=== PATIENT | female | born 1930 | race African-American/Black ===

== ENCOUNTER 2018-07-21 13:24 | Inpatient (IN) | payer OTHER ==
[~2018-07-21] VITALS: Ht 149.9 cm; Wt 42.2 kg
--- NOTE | ~2018-07-21 | EKG ---
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
--- NOTE | ~2018-07-21 | O ---
[address] [address] OPERATIVE REPORT Name: MARYAM FRENCH Room #: 426-P ADM IN M.R.#: [id number] Admission: 07/21/18 Attend Phys: Wojciech Abreu MD Discharge: Date of : 31 Report #: [id number] THIS REPORT FOR: //name// CC: Wojciech Walker DATE OF SERVICE: 07/21/2018 SERVICE: Orthopedics. FACILITY: [facility]. SURGEON: Javan Pimentel MD SUPERVISOR INSPECTING: Audrey Rae NP PREOPERATIVE DIAGNOSES: 1. Type 1 open left both bone forearm fracture. 2. 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 3. Osteoporosis. 4. End-stage renal disease, on hemodialysis, status post previous dialysis access fistula, left upper extremity. POSTOPERATIVE DIAGNOSES: 1. Type 1 open left both bone forearm fracture. 2. 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 3. Osteoporosis. 4. End-stage renal disease, on hemodialysis, status post previous dialysis access fistula, left upper extremity. PROCEDURES: 1. Irrigation and debridement down to bone, left open both bone forearm fracture. 2. Open reduction and internal fixation of left both bone forearm fracture. COMPLICATIONS: None. SPECIMENS: None. ESTIMATED BLOOD LOSS: 75 mL. ANESTHESIA: Regional nerve block with MAC FINDINGS: 1. Severely malunited distal radius fracture from prior trauma, which precluded adequate selection of industry-manufactured traditional distal radius plates or [address] [place] [address] OPERATIVE REPORT Name: MARYAM FRENCH Room #: 426-P [facility] IN M.R.#: [id number] Admission: 07/21/18 Attend Phys: Wojciceh Abreu MD Discharge: Date of : 31 Report #: [id number] long bone plates, therefore had to custom modify a plate for her particular radius deformity. In addition, previous distal radius malunion complicated the exposure due to scarring and shortening of the radial length relative to the ulna. 2. Arteriovenous fistula precluded utilization of a tourniquet during the procedure and resulted in hypertrophy of the radial artery, which was protected throughout the procedure. 3. Synthes 5-hole dynamic LCP plate on the ulna in compression technique. 4. Acumed distal radius plate with Synthes interfragmentary compression screw. HISTORY: The patient is an 87-year-old female with end-stage renal disease, on hemodialysis, who had fallen previously, sustained a left severely displaced distal radius fracture. She has elected for nonsurgical treatment and this resulted in a malunion. She took a fall at congregational today and this resulted in open distal both-bone forearm fracture that was severely displaced. The proximal ulna penetrated the ulnar skin causing the open fracture. She was brought to [facility] Emergency Room where she was treated initially and orthopedics was consulted. Internal medicine service assessed her, felt that she was in optimal condition for surgery and I had a discussion with her and her family members about our treatment recommendations. She was indicated for surgical I and D with open reduction and internal fixation for her best outcome. Risks, benefits, alternatives, and indication of surgery discussed with her in detail. Risks include, but not limited to pain, bleeding, infection, injury to nerves or blood vessels, malunion, nonunion, stiffness, need for further surgery including revision, as well as complications related to anesthesia such as stroke, heart attack, pulmonary complications, thromboembolic disease and . Despite these risks, they wished to proceed. PROCEDURE IN DETAIL: After the left upper extremity was correctly identified in the preop holding area as operative extremity, the patient had placement of a single shot regional nerve block by the anesthesia provider. She was then taken to the operating room and monitored anesthetic care was induced without complication. She was padded appropriately. Prophylactic antibiotics were administered in the emergency room upon presentation with an open fracture and they were redosed at the appropriate time during surgery. The left upper extremity could not have a tourniquet applied. The left arm was then prepped and draped in standard sterile fashion. Time-out procedure was performed. The ulnar open incision was evaluated first. It was a transverse incision measuring just over a centimeter in length. This was extended distally and proximally in a Z shape fashion and contused torn skin in the transverse central portion was excised sharply. Dissection was taken down to the bone. The muscle was incised and was reflected allowing access to the ulna. The position of the traumatic tear and the skin was actually more volar, which developed a pathway to the volar aspect of the ulnar shaft, thereby making internal fixation on the volar side most amenable and appropriate. The bone ends were delivered out of [address] [address] OPERATIVE REPORT Name: MARYAM FRENCH Room #: 426-P [facility] IN M.R.#: [id number] Admission: 07/21/18 Attend Phys: Wojciech Abreu MD Discharge: Date of : 31 Report #: [id number] the wound. They were thoroughly curettaged and irrigated. There were some loose cortical fragments that were free of any soft tissue attachments and had to be excised. There was primarily a transverse fracture here and with the deficient dorsal cortex, internal fixation was challenging because there were no cortical keys to hold provisional reduction in addition with deficient dorsal cortex. K-wire was unable to be utilized for provisional fixation. So therefore, I elected to secure the plate to the bone proximally, assessed its position under fluoroscopy and then reduced the distal fragment to the plate and shaft with the compression plating technique. This provided good secure fixation. The position of the fracture allowed for only a 5-hole plate with 2 holes distal to the fracture, but it did appear to be holding securely. The plate was well centered on the bone. X-rays were taken to assess the ulnar alignment and fixation. The radius was then addressed. The volar approach to the radius was made through the flexor carpi radialis tendon sheath, which was incised and tendon was retracted, as well as the flexor pollicis longus muscle belly and the pronator quadratus. There was scarring of the pronator muscle and some of it had fibrosed from the previous trauma. The soft tissues were adhesed to the malunion and visualization of the natural dissection of an approach plane was rather significantly altered. The radial shaft was visualized proximally and I spent quite some time. She is in the optimal internal fixation construct. The fracture line was quite oblique and was amenable to lag screw fixation, but the dorsal spike was somewhat thin and required a significantly angled lag screw technique, which precluded complete countersinking of the screw head because that would have seeded portion of the head below the cortical layer. Therefore, I partially countersunk the interfragmentary compression screw. After the fracture was clamped, it was drilled. The countersink was utilized AND the interfragmentary compression screw was placed and this provided excellent purchase and strong stable fixation with a single screw. X-rays were taken to confirm the shaft was anatomically reduced. The malunion could be visualized and then I assessed various plate options. The available plate options were compromised either due to the prominence of the interfrag screw or primarily due to the deformity of the distal radius, both on the sagittal plane and the coronal plane. In addition, there was some rotational deformity as well. The malunion precluded use of a traditional distal radius plate, but most this bone was cancellous and so I could not utilize a traditional both bone forearm type shaft plate such as LCP. I ultimately selected the Acumed head locking distal radius plate without extended shaft, but the volar angle for traditional non-malunited distal radius anatomy was too flexed, therefore used the plate bending devices to recontour the plate in an effort to refashion it to a flatter surface, which essentially made it equivalent to an internal and external fixator when placed with locking screws. The plate was then placed under fluoroscopic visualization on multiple planes and then was fixed to the shaft proximally with locking screws and then the plate was fixed distally where purchase was at times compromised due to the significant osteoporosis that was [facility] [address] [place] [address] OPERATIVE REPORT Name: MARYAM FRENCH Room #: 426-P [facility] IN M.R.#: [id number] Admission: 07/21/18 Attend Phys: Wojciech Abreu MD Discharge: Date of : 31 Report #: [id number] present. I was able to place two locking screws and 2 nonlocking screws within the distal segment and also utilized a single compression screw to draw the plate down to the bone volarly and this was later discarded. The wound was copiously irrigated after final x-rays were taken. The fractures were both found to be stable. Hemostasis was achieved once more throughout the procedure. Both wounds were then once again thoroughly irrigated and the skin incisions were closed with 2-0 PDS followed by 3-0 nylon. Sterile dressings applied followed by short arm splint on 3 sides. She is not able to tolerate a sugar-tong or long arm splint because of her fistula. There were no complications. All counts reported correct. <ELECTRONICALLY SIGNED> By: Javan Pimentel MD 07/24/18 0952 [id number] Javan Pimentel MD /nt
--- NOTE | ~2018-07-21 | HC ---
[facility] [place] [address] CONSULTATION Name: MARYAM FRENCH Room #: 426-P ADM IN M.R.#: [id number] Admission: 07/21/18 Attend Phys: Wojciech Abreu MD Discharge: Date of : 31 Report #: [id number] THIS REPORT FOR: //name// CC: Wojciech Walker DATE OF SERVICE: 07/22/2018 NEPHROLOGY CONSULTATION REASON FOR CONSULTATION: End-stage renal disease. HISTORY OF PRESENT ILLNESS: This 87-year-old patient, well known to our service, had been on dialysis for many years at the [facility]. She went to voodoo with her daughter yesterday. Apparently, she lives with her daughter. She fell and broke her left arm and had surgery to repair an open fracture. Although her dialysis days are usually Sunday, and Sunday and today is Sunday, the potassium is up to 5.1. We are seeing the patient for consultation. Of note, the patient is a very poor historian, very vague and has no old records at this facility. I will be investigating her old records when I get to the dialysis center. PAST MEDICAL HISTORY: Long-standing end-stage renal disease, prior history of diabetes, rather severe hypertension and progressive cognitive impairment making accurate history difficult to come upon. HOME MEDICATIONS: Include tramadol 50 mg daily, simvastatin 20 mg daily, metoprolol succinate 12.5 mg b.i.d., Sensipar 30 mg daily, Renvela 800 mg with meals t.i.d., Nephrocaps 1 daily, Pepcid 20 mg daily and Celexa 20 mg daily. SOCIAL HISTORY: No cigarettes or alcohol, lives at home with her daughter. REVIEW OF SYSTEMS: GENERAL: She says she has been feeling well. EYES: Her vision is adequate. ENT: Hearing okay, swallows okay. Denies mouth sores. ENDOCRINE: She has a prior history of diabetes. RESPIRATORY: Denies shortness of breath, pleuritic pain or cough. CARDIAC: Denies chest pain, angina or heart failure. GASTROINTESTINAL: Denies nausea, vomiting, diarrhea or bloody stools. GENITOURINARY: Making very little, if any, urine. NEUROLOGIC: Cognitive impairment, but apparently is up and walking with a walker and walking slowly at times with poor balance. PHYSICAL EXAMINATION: GENERAL: This is a chronically ill-appearing, pleasant patient seen in her [facility] [address] [place] [address] CONSULTATION Name: MARYAM FRENCH Room #: 426-P [facility] IN .R.#: [id number] Admission: 07/21/18 Attend Phys: Wojciech Abreu MD Discharge: Date of : 31 Report #: [id number] hospital room. SKIN: Unremarkable. SKELETAL: She has got a cast on the left forearm. HEENT: Extraocular movements are full. Vision intact. No scleral icterus. Hearing intact. Mucous membranes moist. Tongue, buccal mucosa benign. NECK: Supple. CHEST: Clear. HEART: Regular, with a systolic murmur. ABDOMEN: Soft, nontender. EXTREMITIES: Show left arm fistula. No peripheral edema. Diminished peripheral pulses. NEUROLOGIC: Remarkable for mild cognitive impairment. LABORATORY DATA: Hemoglobin 11.9. Sodium 135, potassium 5.6, chloride 96, bicarbonate 26 and creatinine 7.7. Phosphorus 4.8. ASSESSMENT AND PLAN: 1. End-stage renal disease. She has end-stage renal disease 3 times weekly dialysis. Although her usual dialysis day would be tomorrow, potassium is up to 5.6. I feel it is prudent to run her today. Volume status seems pretty good. 2. Hypertension. 3. Fracture of the left forearm with surgical repair. 4. History of diabetes mellitus. 5. Cognitive impairment. <ELECTRONICALLY SIGNED> By: Julián Larson MD 07/23/18 1128 1137 2236 Julián Larson MD /nt
[2018-07-21 03:00] VITALS: BP 91/34
[2018-07-21 13:25] VITALS: BP 140/77
[2018-07-21 15:42] LABS: HEMATOCRIT 45.1 % (37.0-47.0); MCH 32.6 pg (26.0-34.0); MCHC 33.1 g/dL (28.0-37.0); MCV 98.5 fL (80.0-100.0); RBC 4.58 mil/uL (4.20-5.00); RDW 18.7 % (10.5-14.5); WBC 7.2 thou/uL (4.0-11.0)
[2018-07-21 15:44] LABS: CALCIUM 8.8 mg/dL (8.5-10.1); POTASSIUM 5.1 mmol/L (3.5-5.1)
[2018-07-21 15:55] LABS: APTT 25.7 Seconds (24.5-32.8); PROTIME 10.2 Seconds (9.3-11.4)
[2018-07-21 16:57] VITALS: BP 129/58
[2018-07-21] MEDS ORDERED: TRAMADOL 50 MG50 MG PO (17:38)
[2018-07-21] MEDS ORDERED: ZOCOR20 MG PO (17:43)
[2018-07-21] MEDS ORDERED: TOPROL XL25 MG PO (17:44)
[2018-07-21] MEDS ORDERED: SENSIPAR60 MG PO (17:44)
[2018-07-21 17:45] LABS: ALBUMIN 4.1 g/dL (3.4-5.0); TOTAL PROTEIN 8.7 g/dL (6.4-8.2)
[2018-07-21] MEDS ORDERED: RENVELA800 MG PO (17:46)
[2018-07-21] MEDS ORDERED: NEPHROCAPS SOFT1 CAP PO (17:48)
[2018-07-21] MEDS ORDERED: CELEXA20 MG PO (17:48)
[2018-07-21] MEDS ORDERED: PEPCID20 MG PO (17:48)
[2018-07-21 18:27] LABS: TSH 1.835 uIU/mL (0.358-3.740)
[2018-07-21 22:00] VITALS: BP 164/58
[2018-07-21 22:30] VITALS: BP 162/63
[2018-07-21 23:00] VITALS: BP 153/53
[2018-07-21] MEDS ORDERED: PLAVIX 75 MG TA75 M1 PO (23:37)
[2018-07-22 04:32] LABS: HEMATOCRIT 36.3 % (37.0-47.0); MCHC 32.7 g/dL (28.0-37.0); MCV 97.8 fL (80.0-100.0); RBC 3.71 mil/uL (4.20-5.00); RDW 18.2 % (10.5-14.5); WBC 10.6 thou/uL (4.0-11.0)
[2018-07-22 04:35] LABS: HEMOGLOBIN 11.9 gm/dL (12.0-15.0)
[2018-07-22 04:42] LABS: CALCIUM 8.1 mg/dL (8.5-10.1); CREATININE 7.7 mg/dL (0.6-1.0); MAGNESIUM 2.2 mg/dL (1.8-2.4); POTASSIUM 5.6 mmol/L (3.5-5.1)
[2018-07-22 04:45] LABS: CALCIUM 7.9 mg/dL (8.5-10.1); CREATININE 7.7 mg/dL (0.6-1.0); PHOSPHORUS 4.8 mg/dL (2.5-4.9)
[2018-07-22 08:06] VITALS: BP 89/42
[2018-07-22 16:40] VITALS: BP 113/50
[2018-07-22 21:30] VITALS: BP 94/38
[2018-07-23 04:00] VITALS: BP 159/75
[2018-07-23 04:26] LABS: HEMATOCRIT 31.6 % (37.0-47.0); HEMOGLOBIN 10.4 gm/dL (12.0-15.0); MCH 32.3 pg (26.0-34.0); MCV 97.8 fL (80.0-100.0); RBC 3.23 mil/uL (4.20-5.00); RDW 18.1 % (10.5-14.5); WBC 7.1 thou/uL (4.0-11.0)
[2018-07-23 04:30] VITALS: BP 86/65
[2018-07-23 04:45] LABS: ALBUMIN 2.9 g/dL (3.4-5.0); CALCIUM 7.8 mg/dL (8.5-10.1); PHOSPHORUS 3.7 mg/dL (2.5-4.9)
[2018-07-23 04:52] LABS: CREATININE 4.6 mg/dL (0.6-1.0); POTASSIUM 4.1 mmol/L (3.5-5.1)
[2018-07-23 08:04] VITALS: BP 102/46
[2018-07-23 16:37] VITALS: BP 94/66
[2018-07-23 19:16] VITALS: BP 134/66
[2018-07-24 04:00] VITALS: BP 91/73
[2018-07-24 06:17] LABS: HEMATOCRIT 30.6 % (37.0-47.0); HEMOGLOBIN 10.3 gm/dL (12.0-15.0); MCH 32.9 pg (26.0-34.0); MCHC 33.7 g/dL (28.0-37.0); MCV 97.7 fL (80.0-100.0); RBC 3.14 mil/uL (4.20-5.00); RDW 17.9 % (10.5-14.5); WBC 7.9 thou/uL (4.0-11.0)
[2018-07-24 07:21] LABS: ALBUMIN 2.7 g/dL (3.4-5.0); PHOSPHORUS 5.3 mg/dL (2.5-4.9); POTASSIUM 5.1 mmol/L (3.5-5.1)
[2018-07-24 07:24] LABS: CREATININE 7.6 mg/dL (0.6-1.0)
[2018-07-24 08:10] VITALS: BP 125/42
[2018-07-24 15:14] VITALS: BP 81/40
[2018-07-24 19:15] VITALS: BP 82/38
[2018-07-25 02:55] VITALS: BP 89/35
[2018-07-25 06:23] LABS: HEMOGLOBIN 10.2 gm/dL (12.0-15.0); MCH 33.1 pg (26.0-34.0); MCV 97.4 fL (80.0-100.0); RBC 3.08 mil/uL (4.20-5.00); RDW 17.4 % (10.5-14.5); WBC 8.3 thou/uL (4.0-11.0)
[2018-07-25 06:42] LABS: MAGNESIUM 2.2 mg/dL (1.8-2.4); POTASSIUM 4.7 mmol/L (3.5-5.1)
[2018-07-25 06:44] LABS: CREATININE 6.2 mg/dL (0.6-1.0)
[2018-07-25 07:00] VITALS: BP 104/46
[2018-07-25 18:09] LABS: GLOBULIN TOTAL 2.8 g/dL (2.2-3.9); M-SPIKE Not Observed g/dL (Not Observed)
== END 2018-07-25 16:53 | DRG 510 ==
LOC: ER 13:24 → 4E 16:29 → EROBS 16:29 → 4E 22:29
PROVIDERS: Emergency Medicine; Internal Medicine; Internal Medicine Nephrology
DX: S52.502B Unspecified fracture of the lower end of left radius, initial encounter for open fracture type I or II (principal); N18.6 End stage renal disease; E44.0 Moderate protein-calorie malnutrition; Z68.1 Body mass index [BMI] 19.9 or less, adult; I12.0 Hypertensive chronic kidney disease with stage 5 chronic kidney disease or end stage renal disease; S52.602B Unspecified fracture of lower end of left ulna, initial encounter for open fracture type I or II; E11.22 Type 2 diabetes mellitus with diabetic chronic kidney disease; G31.84 Mild cognitive impairment of uncertain or unknown etiology; M81.0 Age-related osteoporosis without current pathological fracture; K59.00 Constipation, unspecified; E87.5 Hyperkalemia; D64.9 Anemia, unspecified; M62.84 Sarcopenia; Z47.89 Encounter for other orthopedic aftercare; Z95.2 Presence of prosthetic heart valve; W18.39XA Other fall on same level, initial encounter; Y93.89 Activity, other specified; Y92.89 Other specified places as the place of occurrence of the external cause; Y99.8 Other external cause status
CPT/HCPCS: 10783; 32100; 50101; 50347; 50386; 51736; 56525; 56527; 56667; 57091; 57103; 57160; 62110; 62850; 64039; 70005

== ENCOUNTER 2019-03-18 00:25 | Inpatient (IN) | payer OTHER ==
[2019-03-18] VITALS (7 sets, daily range): BP systolic 110–182; BP diastolic 43–83
[~2019-03-18] VITALS: Ht 149.9 cm; Wt 48.3 kg
--- NOTE | ~2019-03-18 | HC ---
[facility] [place] [address] CONSULTATION Name: MARYAM FRENCH Room #: 213-P [facility] IN M.R.#: [id number] Admission: 03/18/19 ������������������ Attend Phys: Tati Hwang Discharge: ������������������ Date of : 31 Report #: [id number] THIS REPORT FOR: //name// CC: Tati Walker DATE OF SERVICE: 03/18/2019 REASON FOR CONSULTATION: Pulmonary edema in a dialysis patient. HISTORY OF PRESENT ILLNESS: This is an 88-year-old female with longstanding end-stage renal disease. She is a chronic hemodialysis patient on a Sunday, , Sunday basis at [facility]. She came in short of breath and hypertensive to the Emergency Room. She has some chronic dementia and memory issues and cannot provide much in the way of history. Nevertheless, she was very short of breath and was hypertensive on admission. Physical findings are as noted those below. PAST MEDICAL HISTORY: Longstanding hypertension, sometimes difficult to control. She is very small stature physically and is very volume dependent for blood pressure control. She dialyzes using a left upper arm fistula. She was last in the hospital last July with left forearm fracture, which was surgically repaired. She has a history of some diabetes, which I believe is on no additional therapy. MEDICATIONS: Which she does not know appear to include some simvastatin 20 mg daily, Plavix 75 mg daily, metoprolol 12.5 mg b.i.d., Sensipar 30 mg daily, Renvela 800 mg t.i.d. with meals as a phosphate binder, citalopram 20 mg daily, famotidine 20 mg daily. These will need to be confirmed from the dialysis unit. ALLERGIES: No known medical allergies. FAMILY HISTORY: Noncontributory. SOCIAL HISTORY: The patient is a . Has help from family members. She again has severe memory problems. REVIEW OF SYSTEMS: Currently, says she is having a little trouble breathing, but is not in extremis quite remarkably. She thinks she has had some cough. She says she has been getting some extra water because she is thirsty. She is unaware of fevers, chills or sweats. Denies pain at this time. Again, additionally a difficult history. PHYSICAL EXAMINATION: GENERAL: Diminutive 88-year-old female, awake and responsive, recognizes me, but again has severe memory issues. [facility] [address] [place] [address] CONSULTATION Name: MARYAM FRENCH Room #: 213-P [facility] IN M.R.#: [id number] Admission: 03/18/19 ������������������ Attend Phys: Tati Hwang Discharge: ������������������ Date of : 31 Report #: [id number] VITAL SIGNS: Original blood pressure on presentation was 182/83, most recently 150/69 with a heart rate of 80. Current oxygen saturation 93% on 4 liters per nasal cannula. Temperature 97.0, respiratory rate 20. HEENT: Shows pupils are equal and reactive. Sclerae nonicteric. Oral mucosa is negative. NECK: Veins are distended moderately. CHEST: Shows diffuse rales bilaterally. HEART: Regular rate and rhythm with an intermittent S3 gallop. ABDOMEN: Has active bowel sounds, is soft and nontender. EXTREMITIES: Show no peripheral edema, which is her usual. She has a large left upper arm fistula in place with active flow. I have reviewed her chest x-ray, which shows classic findings of central venous congestion and pulmonary edema as well as some fluid in the fissures. LABORATORY DATA: Sodium 136, potassium 4.6, chloride 96, bicarbonate 27, BUN 50, creatinine 9.7, glucose 205, calcium 8.6, total protein 8.4, albumin 3.5. Troponin less than 0.06. White count 12.4, hemoglobin 13.5, hematocrit 41.8, platelets 337,000. Blood gas in the Emergency Room, pH 7.33, pCO2 of 48.6, pO2 of 95 on 50% per facemask. ASSESSMENT: 1. End-stage renal disease with pulmonary edema. She had her last dialysis from what I can tell 3 days ago, which was her usual time. She is now volume overload and hypertensive and hypoxemic along with that. She needs urgent dialysis and we will get that started. I have already called the dialysis nurses and they are on their way. 2. Hypertension, volume management. 3. Chronic dementia. PLAN: 1. Urgent dialysis as noted above. 2. Pending how she does with that, she may need some additional dialysis again tomorrow, but we will see how she responds to the current therapies. Normally, she bounces back fairly quickly. 3. We will follow along the care of this patient. ��������������������������������������������� ���������������������������������������� By: ��������������������������������������������� 8 53 Oc Che MD /nt
[~2019-03-18 00:25] MED LIST: CELEXA20 MG PO; NEPHROCAPS SOFT1 CAP PO; PEPCID20 MG PO; PLAVIX 75 MG TA75 M1 PO; RENVELA800 MG PO; SENSIPAR60 MG PO; TOPROL XL25 MG PO; TRAMADOL 50 MG50 MG PO; ZOCOR20 MG PO
[2019-03-18 00:42] LABS: HEMATOCRIT 41.8 % (37.0-47.0); HEMOGLOBIN 13.5 gm/dL (12.0-15.0); MCH 32.6 pg (26.0-34.0); MCHC 32.2 g/dL (28.0-37.0); MCV 101.4 fL (80.0-100.0); PLATELET COUNT 337 thou/uL (150-400); RBC 4.12 mil/uL (4.20-5.00); RDW 22.2 % (10.5-14.5); WBC 12.4 thou/uL (4.0-11.0)
[2019-03-18 00:49] LABS: ANION GAP 13 mmol/L (7-16); BUN 50 mg/dL (7-18); CALCIUM 8.6 mg/dL (8.5-10.1); CHLORIDE 96 mmol/L (98-107); CO2 27 mmol/L (21-32); CREATININE 9.7 mg/dL (0.6-1.0); GLUCOSE 205 mg/dL (74-106); POTASSIUM 4.6 mmol/L (3.5-5.1); SODIUM 136 mmol/L (136-145)
[2019-03-18 00:54] LABS: APTT 24.4 Seconds (24.5-32.8); PROTIME 10.1 Seconds (9.3-11.4)
[2019-03-18 00:59] LABS: ALBUMIN 3.6 g/dL (3.4-5.0); MAGNESIUM 2.5 mg/dL (1.8-2.4); SGOT 20 U/L (15-37); SGPT 14 U/L (30-65); TOTAL BILIRUBIN 0.3 mg/dL (<0.1-1.0); TOTAL PROTEIN 8.4 g/dL (6.4-8.2); TROPONIN-I <0.06 ng/mL (<0.06)
[2019-03-18 01:01] LABS: BE(vivo) -1.2 mmol/L (-2 to +3); HCO3 25.2 mmol/L (22.0-26.0); PCO2 48.6 mmHg (35.0-45.0); pH 7.332 (7.360-7.450); sO2 96.8 % (92.0-98.0)
[2019-03-18 01:05] LABS: ABSOLUTE NEUTROPHILS 8.9 thou/uL (1.4-8.2); NUCLEATED RBCS 1 /100WBC
[2019-03-18 01:06] LABS: ANISOCYTOSIS 3+; LARGE PLATELETS FEW; MACROCYTES 1+; PLATELET ESTIMATE NORMAL; POLYCHROMASIA 1+
--- NOTE | 2019-03-18 05:41 | NUR ---
PT WAS AN ER ADMIT WHO CAME IN TO THE ER WITH SHORTNESS OF AIR. NO FAMILY AT BEDSIDE. ADMISSION ASSESSMENT AND EDUCATION COMPLETED WITH PATIENT. PT IS STABLE WITH NASAL CANNULA ON. DIALYSIS PATIENT WHO GETS DIALYSIZES [id number]. CONSENTS SIGNS. DENIES ANY FURTHER NEEDS AT THIS TIME.
--- NOTE | 2019-03-18 10:38 | NUR ---
PT IS A&0X4, AMB W/CLOSE SBA AND WALKER, IS NOT IMPULSIVE, USES CALL LIGHT FOR NEEDS, UNDERGOING DIALYSIS AT THIS TIME, A.M. MEDS WILL BE GIVEN AFTER DIALYSIS OTHER THAN HER BINDER GIVEN DURING DIALYSIS. PT IS IN GOOD SPIRITS, WILL CONTINUE TO MONITOR, ON 3L 02 AT THIS TIME, DOES NOT WEAR 02 AT HOME. LUNG SOUNDS CLEAR AT THIS TIME, WILL CONTINUE TO MONITOR
--- NOTE | 2019-03-18 13:42 | NUR ---
met with patient who admits with SOA. Patient reports she lives at home with dtr Lashay. She goes up/down 7 steps to bedroom. She does not wear oxygen. She uses a walker in home. [facility] Lashay retired and resides in home with sp. Sp with Lashay who reports patient has been at [facility] in past. Lashay reports some difficulty with ambulation at home. Therapy evals ordered. Referral to [facility] for review.
--- NOTE | 2019-03-18 16:12 | NUR ---
CASE MANAGE: PT'S DAUGHER, ADDY, CALLS TO ASK THAT WE EVAL PT'S BILAT SHOULDERS THEY'VE BEEN HURING >1YR (SENT AIRMAIL TO PHYSICIAN) AND IF SHE CAN BE ELIGIBLE FOR REHAB UPON DISCHARGE.
--- NOTE | 2019-03-18 16:23 | NUR ---
FAXED REFERRAL TO [facility] SKILLED SPOKE WITH JOSE IN ADM SHE RECEIVED REFERRAL AND WILL FAX PT/OT NOTES ONCE AVAILABLE. DCP TO FOLLOW.
--- NOTE | 2019-03-18 16:47 | EKG ---
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 : 1930 Requested By: Manuel Moy Order Number: [id number] MD: Jere Tesfaye Measurements Intervals [place] Rate: 88 P: 15 [place]: 165 QRS: 26 QRSD: 87 T: 45 QT: 384 QTc: 465 Interpretive Statements Sinus rhythm Low voltage, extremity leads Poor R wave progression Compared to ECG 07/21/2018 16:58:27 No significant change was found Electronically Signed On 03-18-2019 16:47:41 CDT by Jere Tesfaye [email or web address] ��������������������������������������������� <ELECTRONICALLY SIGNED> ���������������������������������������� By: Jere Tesfaye MD, [facility] ��������������������������������������������� 03/18/19 1647 Jere Tesfaye MD, [facility] /EPI
[2019-03-18 23:05] LABS: GLYCOHEMOGLOBIN (HGB A1C) 4.6 % (4.8-5.6)
[2019-03-19 04:36] VITALS: BP 104/38
--- NOTE | 2019-03-19 05:15 | NUR ---
ASSUMED PT CARE AT 1900 WITH NO SIGN OF DISTRESS NOTED IN PT. NO FAMILY AT BEDSIDE. PT IS STABLE AND DIALYSIS WAS DONE ON SUNDAY. VITAL SIGNS STABLE. SCHEDULED MEDS AMDINISTERED TO PT. PT TOLERATED PO INTAKE. PT IS STABLE THROUGHOUT THE NIGHT. DENIES ANY FURTHER NEEDS AT THIS TIME.
[2019-03-19 07:27] VITALS: BP 115/57
[2019-03-19 11:00] VITALS: BP 119/41
[2019-03-19 11:16] VITALS: BP 115/52
[2019-03-19 15:01] VITALS: BP 91/68
--- NOTE | 2019-03-19 16:02 | NUR ---
prev orders for dc home however dtr reports patient weak at home. Therapy evals in process. Faxed updated information to [facility] for post acute care. Upadated dtr regarding auth process. Patient dializes at [facility] they will need to be updated at dc. Dtr feels patient needs ST eval as well she feels she mumbles almost garbled speech.
--- NOTE | 2019-03-19 16:43 | NUR ---
PATIENT ALERT AND ORIENTED, VSS, NO COMPLAINTS OF PAIN. PATIENT UP TO CHAIR WITH PT. PATIENT IS TO BE DISCHARGED TO [facility] TOMORROW AFTER DIALYSIS. WILL CONTINUE TO MONITOR.
[2019-03-19 20:09] VITALS: BP 110/51
[2019-03-20 03:17] VITALS: BP 121/64
--- NOTE | 2019-03-20 06:24 | NUR ---
ASSUME CARE 1900. PT/VITALS STABLE. COMPLAINS TO INTERMITTENT LOWER BACK PAIN. UP WITH ASSISTANCE/WALKER. ASSESSMENT CHARTED. PROGRESSING WELL WITH POC. PT ANURIC. PLAN IS TO HAVE HEMODIALYSISI TODAY BEFORE DISCHARGING TO REHAB AT [facility]. WILL CONTINUE TO MONITOR AND FOLLOW WITH POC
[2019-03-20 08:00] VITALS: BP 139/65
--- NOTE | 2019-03-20 10:50 | NUR ---
discharge planning: dp sent updates and inquired if they can accept and if they sought authorization. DP also sent updates.
[2019-03-20 10:53] VITALS: BP 145/61
--- NOTE | 2019-03-20 14:56 | NUR ---
Care team updated. [facility] has accepted the pt and will have a bed today if insurance auth obtained. They have submitted the auth request. The pt was updated at bedside and her dtr Lashay via phone. The pt is getting dialysis now and will be finished within the hour. Pt and dtr agreeable to dc to snf once auth is in place. Will ask the attending to update her final orders for SNF.
[2019-03-20 14:59] VITALS: BP 104/45
--- NOTE | 2019-03-20 19:41 | NUR ---
PATIENT DIALYZED TODAY, ALERT AND ORIENTED, VSS, NO COMPLAINTS OF PAIN, DISCHARGED TO [facility] AT 1830 BY TRANSPORT. NOTIFIED DAUGHTER OF TRANSFER, CALLED REPORT TO [facility].
== END 2019-03-20 18:41 | DRG 640 ==
LOC: ER 00:25 → EROBS 01:40 → 2N 01:40
PROVIDERS: Emergency Medicine; Nurse Practitioner Acute Care; ADMIT Hospitalist
DX: E87.70 Fluid overload, unspecified (principal); J96.01 Acute respiratory failure with hypoxia; N18.6 End stage renal disease; I13.2 Hypertensive heart and chronic kidney disease with heart failure and with stage 5 chronic kidney disease, or end stage renal disease; E11.22 Type 2 diabetes mellitus with diabetic chronic kidney disease; E78.5 Hyperlipidemia, unspecified; I50.9 Heart failure, unspecified; H54.62 Unqualified visual loss, left eye, normal vision right eye; F32.9 Major depressive disorder, single episode, unspecified; E11.65 Type 2 diabetes mellitus with hyperglycemia; F03.90 Unspecified dementia, unspecified severity, without behavioral disturbance, psychotic disturbance, mood disturbance, and anxiety; Z96.651 Presence of right artificial knee joint; Z90.710 Acquired absence of both cervix and uterus; Z79.84 Long term (current) use of oral hypoglycemic drugs; Z99.2 Dependence on renal dialysis; R73.9 Hyperglycemia, unspecified
CPT/HCPCS: 10081; 32100

== ENCOUNTER 2020-03-11 08:16 | Inpatient (IN) | payer OTHER ==
[~2020-03-11] VITALS: Ht 147.3 cm; Wt 45.6 kg
[2020-03-11] VITALS (38 sets, daily range): BP systolic 83–172; BP diastolic 34–71
--- NOTE | ~2020-03-11 | HC ---
[place] [address] CONSULTATION Name: MARYAM FRENCH Room #: 204-P [facility] IN M.R.#: [id number] Admission: 03/11/20 Attend Phys: Morales Cordova, Discharge: Date of : 31 Report #: [id number] THIS REPORT FOR: cc: Popeye Walker MD, Thomas P. MD Smithson, David G. MD ~ CC: Jason Walker DATE OF SERVICE: 03/15/2020 HISTORY OF PRESENT ILLNESS: The patient is an 89-year-old -Moldovan female who fell out of bed, had the onset of lower abdominal pain. She was admitted to . CT showed a large rectus sheath hematoma. This was noted to be an intra-abdominal hematoma. It was evaluated and felt that it should attempt in on its own. She did have some xiqqa-gf-wpbuvsx blood loss anemia, warranting a transfusion. She has been followed conservatively in this regard. She is a dialysis patient and also has a history of dementia. We are seeing her in rehabilitation medicine consultation. PAST MEDICAL HISTORY: Includes dialysis as an outpatient prior right knee replacement in 2009, blind left eye, hypertension, hysterectomy, constipation. MEDICATIONS: Please see the full medication listing. ALLERGIES: No known drug allergies. SOCIAL HISTORY: She lives in a trilevel house with her daughter, has never home alone with her dementia, uncertain what device if any she utilize. Case management notes indicate that she was able to dress herself, feed herself and used to transport to dialysis. REVIEW OF SYSTEMS: No current complaints of chest pain, shortness of breath or abdominal discomfort. PHYSICAL EXAMINATION: GENERAL: An 89-year-old small statured, thin -Moldovan female in no obvious distress. She was confused as to who I was and seemed disappointed that I was not taking her out. VITAL SIGNS: She has a temperature of 99.2, pulse 103, respirations 20, blood pressure 148/51. She will follow basic 1 step commands. Some mumbling, but basic sentence structure. HEENT: Facies are symmetric. EXTREMITIES: Functional range of motion of the upper and lower extremity [address] [place] [address] CONSULTATION Name: MARYAM FRENCH Room #: 204-P [facility] IN M.R.#: [id number] Admission: 03/11/20 Attend Phys: Morales Cordova, Discharge: Date of : 31 Report #: [id number] strength is probably a grade 3+/5. Tone appeared to be intact. She is mod assist, sit to stand. Bed mobility is max assist, lower body dressing is noted to be mod assist. She has not ambulated at this point. ASSESSMENT: An 89-year-old -Moldovan female with the following problem list: 1. Generalized weakness and debilitation. 2. Intraabdominal hematoma. The patient was on Plavix is being treated conservatively. 3. Opkrk-sy-jrswlcl blood loss anemia. 4. End-stage renal disease, on hemodialysis. 5. Diabetes mellitus, on diet control. 6. Dementia. PLAN: Note that multiple skilled facilities have been contacted. Issues are noted with her dialysis or medications. The acute in-hospital inpatient rehabilitation bhatia is currently full and I would recommend you continue to search out skilled level options. Insurance may be able to assist with some of the medication cost concerns, etc. at a skill level. I am uncertain if insurance would approve for an acute in-hospital inpatient rehabilitation stay and as I noted beds are currently tight. At this point, we will continue to follow along with you. By: [id number] Abhinav Thompsno MD /[facility]
--- NOTE | ~2020-03-11 | EMS ---
[address] [address] EMS Patient Care Report Name: MARYAM FRENCH Room #: PRE M.R.#: [id number] Admission: Attend Phys: Discharge: Date of : 31 Report #: [id number] THIS REPORT FOR: //name// Report Transmitted: 03/11/2020 08:23 EMS Care Summary [place], [place]/[facility] Incident [id number] @ 03/11/2020 07:46 Incident Location [address] [place] [address] Patient MARYAM FRENCH Female, 89 Years 1930 Patient Address [address] [place] [address] Patient History Hypertension (HTN),Kidney/Renal Failure, Patient Allergies No known allergies, Patient Medications Clopidogrel, Metoprolol, Celexa, Chief Complaint INCREASED CONFUSION Disposition Transported No Lights/[place] Dispatch Reason Falls Transported To [facility] Narrative UPON ARRIVAL PT SUPINE ON FLOOR NEXT TO BED CONSCIOUS AND ALERT BUT CONFUSED. PT STATES SHE'S BEEN SHOT (SHE HAS NOT). FAMILY STATES PT SLID DOWN THE SIDE OF THE BED TO THE FLOOR. PT HAS BEEN HAVING INCREASED CONFUSION THE PAST 2 WEEKS POSSIBLY FROM ALZEIMERS/DEMENTIA. FAMILY WANTS PT SEEN FOR INCREASED CONFUSION. [address] [address] EMS Patient Care Report Name: MARYAM FRENCH Room #: PRE MRyan.#: [id number] Admission: Attend Phys: Discharge: Date of : 31 Report #: [id number] PT ALSO C/O R LEG PAIN AND PUBIC AREA PAIN. PT CARRIED TO [facility] AND TRANSPORTED TO [facility]. Initial Vitals @08:08P: 76,CO: 1,SpO2: 95, @08:09P: 75,R: 16,BP: 128/72,GCS: 14,SpO2: 94,Revised Trauma: 12, @07:57P: 79,R: 16,BP: 152/74,Pain: 4/10,GCS: 14,Glucose: 157,SpO2: 96,Revised Trauma: 12, Assessments @07:52MENTAL:Confused,Person Oriented,SKIN:HEENT:Head/Face: No Abnormalities,LUNG SOUNDS:General: No Abnormalities,ABDOMEN:General: No Abnormalities,PELVIS//GI:No Abnormalities,EXTREMITIES:Left Arm: No Abnormalities,Right Arm: No Abnormalities,Left Leg: No Abnormalities,Right Leg: No Abnormalities,PULSE:Radial: 2+ Normal,NEURO:No Abnormalities, Impression Altered Mental Status Procedures @07:52ALS AssessmentResponse: UnchangedSucceeded Timeline 07:44,Call Received 07:44,Dispatch Notified 07:46,Dispatched 07:46,En Route 07:49,On Scene 07:51,At Patient 07:52,ALS Assessment,Response: UnchangedSucceeded, 07:57,BP: 152/74 M,PULSE: 79,RR: 16 R,SPO2: 96 Ox,ETCO2: ,B,PAIN: 4,GCS: 14, 07:58,Depart Scene 08:08,BP: / M,PULSE: 76,RR: R,SPO2: 95 Ox,ETCO2: ,BG: ,PAIN: ,GCS: , 08:09,BP: 128/72 M,PULSE: 75,RR: 16 R,SPO2: 94 Ox,ETCO2: ,BG: ,PAIN: ,GCS: 14, 08:11,At Destination 08:29,Call Closed Disclaimer v1.1 Copyright 2020 [employer] This EMS Care Summary contains data elements from the applicable legal record (which may be displayed differently). It is designed to provide pertinent information for the following purposes: continuity of care, clinical quality, and state data reporting. The complete legal record is available to ED staff and administrators of the receiving hospital in [facility] Patient Tracker. All data is provided "as is."
[2020-03-11] MEDS ORDERED: ROCALTROL0.5 MCG PO (08:29)
[2020-03-11] MEDS ORDERED: ASA81BEC PO (08:29)
[2020-03-11] MEDS ORDERED: TOPROL XL25 MG PO (08:30)
[2020-03-11] MEDS ORDERED: MIRALAX17 G1 PO (08:33)
[2020-03-11] MEDS ORDERED: NEPHRO-VITE RX1 TA1 PO (08:33)
[2020-03-11 09:26] LABS: ABSOLUTE NEUTROPHILS 16.7 thou/uL (1.4-8.2); BASOPHILS 0.4 % (0.0-2.0); EOSINOPHILS 0.8 % (0.0-3.0); HEMATOCRIT 26.4 % (37.0-47.0); HEMOGLOBIN 8.6 gm/dL (12.0-15.0); LYMPHOCYTES 3.6 % (24.0-44.0); MCH 31.8 pg (26.0-34.0); MCHC 32.7 g/dL (28.0-37.0); MCV 97.3 fL (80.0-100.0); MONOCYTES 7.2 % (1.0-8.0); PLATELET COUNT 224 thou/uL (150-400); RBC 2.72 mil/uL (4.20-5.00); RDW 20.8 % (10.5-14.5)
--- NOTE | 2020-03-11 09:28 | EKG ---
[facility] [place] [address] ELECTROCARDIOGRAM REPORT Name: MARYAM FRENCH Room #: PRE [facility].R.#: [id number] Admission: Attend Phys: Discharge: Date of : 32 Report #: [id number] THIS REPORT FOR: cc: Popeye Walker MD, Thomas P. MD Lundgren, Craig H. MD [facility] ~ THIS REPORT FOR: //name// [facility] ED Test Date: 2020-03-11 Test Time: 09:24:42 Pat Name: MARYAM FRENCH Department: Room: Gender: F Condenser Winder: kf : 1930 Requested By: Javan Xavier Order Number: [id number] MD: Jere Tesfaye Measurements Intervals [place] Rate: 75 P: 36 SD: 171 QRS: 31 QRSD: 74 T: -18 QT: 454 QTc: 508 Interpretive Statements Sinus rhythm T wave abnormality, consider inferior ischemia Low voltage, extremity leads Prolonged QT interval Compared to ECG 03/18/2019 00:37:09 Prolonged QT interval now present Inferior T wave abnormality is new Electronically Signed On 03-11-2020 9:26:38 CDT by Jere Tesfaye [email or web address] <ELECTRONICALLY SIGNED> By: Jere Tesfaye MD, FACC 03/11/2026 3 3 Jere Tesfaye MD, [facility] /EPI
[2020-03-11 10:50] LABS: ANISOCYTOSIS 2+
[2020-03-11 10:52] LABS: CALCIUM 8.3 mg/dL (8.5-10.1); MAGNESIUM 2.3 mg/dL (1.8-2.4)
[2020-03-11 11:05] LABS: URINE BILIRUBIN NEGATIVE (Negative); URINE BLOOD NEGATIVE (Negative); URINE CLARITY CLEAR; URINE COLOR YELLOW; URINE GLUCOSE-RANDOM* NEGATIVE (Negative); URINE KETONES NEGATIVE (Negative); URINE LEUKOCYTES-REFLEX TRACE (Negative); URINE NITRITE-REFLEX NEGATIVE (Negative); URINE PROTEIN (DIPSTICK) 3+ (Negative); URINE UROBILINOGEN 0.2 E.U./dl (0.2-1.0)
[2020-03-11 11:20] LABS: POTASSIUM 6.2 mmol/L (3.5-5.1)
[2020-03-11 11:47] LABS: BACTERIA-REFLEX 1-9 Few /HPF (None Seen); CASTS None Seen /LPF (None Seen); CRYSTALS None Seen /LPF (None Seen); SQUAMOUS 0-3 Few /LPF (0-3); URINE RBC None Seen /HPF (0-2); URINE WBC-REFLEX 0-5 Rare /HPF (0-5)
[2020-03-11 11:56] LABS: APTT 24.5 Seconds (24.5-32.8); INR 1.2; PROTIME 12.2 Seconds (9.3-11.4)
[2020-03-11 12:43] LABS: ABSOLUTE NEUTROPHILS 13.2 thou/uL (1.4-8.2); BASOPHILS 0.3 % (0.0-2.0); EOSINOPHILS 0.3 % (0.0-3.0); HEMOGLOBIN 8.8 gm/dL (12.0-15.0); LYMPHOCYTES 5.4 % (24.0-44.0); MCH 31.9 pg (26.0-34.0); MCHC 32.5 g/dL (28.0-37.0); MCV 98.3 fL (80.0-100.0); MONOCYTES 6.9 % (1.0-8.0); PLATELET COUNT 195 thou/uL (150-400); POLYS 87.1 % (36.0-66.0); RBC 2.74 mil/uL (4.20-5.00); RDW 20.9 % (10.5-14.5); WBC 15.2 thou/uL (4.0-11.0)
[2020-03-11 13:11] LABS: ANISOCYTOSIS 2+
[2020-03-11 13:12] LABS: POLYCHROMASIA OCCASIONAL
--- NOTE | 2020-03-11 18:10 | NUR ---
Pt admitted to the ICU from the Emergency dept. Pt is awake and responsive. Pt is able to state her name but does not answer orientation questions about her location. Pt indicates she is having abdominal pain but is unable to rate the pain. Sinus rhythm. Call placed to Dr Alcantar to clarify orders.
--- NOTE | 2020-03-11 18:15 | NUR ---
Call returned from Dr Alcantar. Pt is to be admitted on Dr Cordova's service. Check repeat HH once on dialysis and clarify diet with surgeon. Keep NPO for now.
[2020-03-11 18:45] LABS: HEMATOCRIT 21.5 % (37.0-47.0)
--- NOTE | 2020-03-11 19:00 | NUR ---
Pt is resting but remains resposive. rack washer at bedside monitoring hemodialysis in progress. Report given to Latanya Diaz RN assuming care of patiet. Page to Shania to report repeat HH of 7.0/21.5.
--- NOTE | 2020-03-11 20:00 | NUR ---
ASSUMED CARE OF PT. CURRENTLY RECEIVING DIALYSIS. VSS PT IS VERY DROUSY.
[2020-03-12] VITALS (17 sets, daily range): BP systolic 104–148; BP diastolic 33–53
[2020-03-12 02:33] LABS: HEMATOCRIT 28.4 % (37.0-47.0); MCH 31.5 pg (26.0-34.0); MCHC 32.3 g/dL (28.0-37.0); MCV 97.4 fL (80.0-100.0); RBC 2.92 mil/uL (4.20-5.00); WBC 15.1 thou/uL (4.0-11.0)
[2020-03-12 02:39] LABS: HEMOGLOBIN 9.2 gm/dL (12.0-15.0)
[2020-03-12 04:22] LABS: CALCIUM 8.2 mg/dL (8.5-10.1)
[2020-03-12 04:23] LABS: CREATININE 3.5 mg/dL (0.6-1.0)
--- NOTE | 2020-03-12 06:00 | NUR ---
pt much more alert this hour. 300 cc fluid taken off in dialysis. had one unit of packed cells with dialysis. repeat hgb 9.1 this am. bathed. remains ANURIC. SINUS RHYTHM. LUNGS CLEAR VSS. WILL CONT TO MONITOR.
--- NOTE | 2020-03-12 09:52 | NUR ---
DAUGHTER ADDY CALLED TO INQUIRE REGARDING PT STATUS. UPDATED INCLUDING PT ALERT TO FIRST NAME ONLY, CURRENTLY NOT HAVING PAIN, CT OF HEAD, BLOOD GIVEN WITHOUT CURRENT SIGNS OF BLEEDING. PHONE TAKEN TO PT AND SHE SPOKE WITH HER DAUGHTER. ALL QUESTIONS ANSWERED.
--- NOTE | 2020-03-12 10:33 | NUR ---
chart review. cm visit with bedside nurse for report, a & o self, possible move out of icu today. pt been her in past over year ago and was dc to [facility] skilled rehab. cm called daughter ginger [phone] via phone call. intro to cm, and transition of care. ginger reported " we live in tri level home, 8 steps from garage then 8 more steps to bedrooms. she is able to dresses her self, feed here self. ginger manage medication weekly in pill box. no longer drives vehicle, uses [facility] for dialysis tue, thur and sat at [facility]. uses 4w. hh with [facility] through [facility] is who her hh was after [facility]. had falls over last six months. i want her to have some rehab at [facility] before coming home. she is never left alone rt dementia. "/daughter ginger. will cont following as needed for dc needs. referral to be sent to [facility] for skilled rehab.
--- NOTE | 2020-03-12 12:30 | NUR ---
REPORT TO QUITA TAPIA. NOTIFIED ADDY, DAUGHTER, OF TRANSFER TO CCU# 204. CALL PLACED TO DR. DE LEON TO NOTIFY OF URINE RESULTS.
--- NOTE | 2020-03-12 12:46 | NUR ---
NOTIFIED DR. DE LEON OF BACTERIA, 1-9 FEW. NO TREATMENT AT THIS TIME. HE WILL WATCH FOR URINE CULTURES.
--- NOTE | 2020-03-12 13:03 | NUR ---
transferred to CCU #204 per bed.
--- NOTE | 2020-03-12 13:07 | NUR ---
REFERRAL FAXED TO [facility] SPOKE WITH TABITHA IN ADM SHE RECEIVED REFERRAL AND DENIED DUE TO DIALYSIS.
--- NOTE | 2020-03-12 14:02 | NUR ---
ASSUMED CARE 1315. PT ALERT TO SELF, SLEEPY AROUSE WHEN ADDRESSED.DENIES SOB, PAIN IN ABD AREA. NPO PER ORDERS. PT AND OT TO ROUND TOGETHER TO DETERMINE NEEDS. BED LOCKS AND ALARM SET . CALL LIGHT IN REACH .CLOSE TO NURSE STATION STAFF TO ANTICIPATE NEEDS.
--- NOTE | 2020-03-12 14:42 | NUR ---
FAXED REFERRAL TO [facility] RECEIVED CONFIRMATION AND LEFT MSG WITH MANJULA IN ADM.
--- NOTE | 2020-03-12 14:46 | NUR ---
THIS RN SPOKE WITH DR. DE LEON BY TELEPHONE. HE STATES COVID-19 SWAB ORDERED IN REGARDS TO PTS BEING DISCHARGED IN SOON TO A ASSISTED.
--- NOTE | 2020-03-12 15:46 | NUR ---
FAXED REFERRAL TO [facility] LEFT MSG WITH TAWANDA AND SHIRA STILL WTG ON THERAPY EVMANUEL. DP TO FOLLOW.
[2020-03-12 16:07] LABS: HEMATOCRIT 26.4 % (37.0-47.0); HEMOGLOBIN 8.7 gm/dL (12.0-15.0); MCH 32.4 pg (26.0-34.0); MCV 98.3 fL (80.0-100.0); RBC 2.69 mil/uL (4.20-5.00); RDW 19.5 % (10.5-14.5); WBC 13.6 thou/uL (4.0-11.0)
--- NOTE | 2020-03-12 16:52 | NUR ---
ZENAIDA notified that [facility] SNF is unable to accept pt due to pt needing outpatient dialysis. [facility] is not accepting dialysis pts at this time. Referral sent to [facility]. ZENAIDA spoke with pt's dtr, Lashay, via phone to provide update. ZENAIDA discussed alternate SNFs if pt is not accepted to [facility] due to dialysis. Pt's dtr is agreeable with referral to [facility], as there is an onsite DCI clinic at [facility]. habitat conservation planner to fax referral to [facility]. ZENAIDA left voice message for Celena in admissions at [facility] to follow up on referral. Will need therapy evals. Pt transferred from ICU to CCU earlier this afternoon. ZENAIDA is following to assist as needed with discharge planning.
--- NOTE | 2020-03-13 03:45 | NUR ---
PT IS ALERT TO SELF. CONFUSED AT TIMES. COMPLAINTS OF ABDOMINAL PAIN AND KUB ORDERED AND SUPOSITORY GIVEN. PT HAD A SMEAR OF STOOL AND CLEANED. REPORTS PASSING GAS. UPDATED DAUGHTER ON PLAN OF CARE. LUNGS ARE CLEAR ON ROOM AIR. TAKES HER LEADS OFF ON THE MONIOR. NSR ON SENIOR SALES ENGINEER. WILL CONTINUE TO ASSESS AND MONITOR PER NURSING. PLAN OF CARE DIALYSIS TODAY.
[2020-03-13 04:01] LABS: HEMATOCRIT 24.4 % (37.0-47.0); HEMOGLOBIN 8.1 gm/dL (12.0-15.0); MCH 32.4 pg (26.0-34.0); MCHC 33.1 g/dL (28.0-37.0); MCV 98.1 fL (80.0-100.0); RBC 2.49 mil/uL (4.20-5.00); RDW 19.5 % (10.5-14.5); WBC 11.9 thou/uL (4.0-11.0)
[2020-03-13 04:13] LABS: HEP B SURFACE Ab(ANTI-HBS Reactive (()); HEPATITIS B SURFACE AG Negative (Negative)
[2020-03-13 05:07] VITALS: BP 123/46
[2020-03-13 08:00] VITALS: BP 136/67; BP 144/63
--- NOTE | 2020-03-13 10:02 | NUR ---
ASSUMMED PT CARE AT APPROXIMATELY 0700. PT AWAKE AND ORIENTED TO SELF. PT C HX OF DEMENTIA. ASSESSMENT CHARTED. FALL PRECAUTIONS IN PLACE. PT DENIES HAVING CHEST PAIN. PT DENIES HAVING SOB. PT DENIES HAVING ACUTE PAIN. PT RECEIVING DIALYSIS. VITAL SIGNS STABLE. PT WITHOUT IV AT 0700. INFORMED HOUSE SUPERIVISOR. ED RN PLACED NEW IV. PT TOOK OUT IV. PAGED IV TEAM. IV TEAM PLACED NEW IV. PT RESTING COMFORTABLE IN BED. PT DENIES HAVING CONCERNS. GAVE REPORT TO QUITA HOLT. CARE CHANGED TO YANET AT APPROXIMATELY 0945. YANET STATED UNDERSTANDING AND DENIED HAVING FURTHER QUESTIONS.
[2020-03-13 11:30] VITALS: BP 131/57
--- NOTE | 2020-03-13 12:00 | NUR ---
Assumed care at 10am from RN Magdalena. Received awake on bed. Due medications to be given- ongoing dialysis. A+O to self- re-oriented from time to time; blind at L eye- assisted in ADLs. On telemetry monitoring- strips attached to chart; no complaints of chest pain, heaviness and crushing sensation. On mechanically chopped + thin liquids- assisted and encouraged in eating and drinking. With dialysis fistula at L upper arm- bruit and thrill present; ongoing dialysis. Turned to her sides. Falls bundle in place. Pt a/w IV re-insertion. IV re-inserted by IV nurse Marie at R FA- wrapped in [place]. To continue monitoring patient. Pt's daughter Lashay updated re: pt's status.
[2020-03-13 16:30] VITALS: BP 146/47
[2020-03-13 20:28] VITALS: BP 138/54
[2020-03-14 04:20] VITALS: BP 134/37
--- NOTE | 2020-03-14 04:34 | NUR ---
PATIENT ASSESSED AND IS ALERT X 1 SKIN WARM AND DRY. RESP EVEN AND UNLABORED. NO SKIN ISSUES NOTED. TURNED Q 2 HOURS AND PRN. HAS DEMENTIA. TELE- SHOWS NSR ON ROOM AIR. DENIE ANY PAIN. HAS A LEFT ARM FISTULA FOR DIALYSIS ON / / SUN. ACCU CHECKS WAS 114 THIS EVENING. NO INSULIN ORDERED. BLIND IN LEFT EYE. IS ON MECH CHOPPED DIET. TAKES WATER WELL. CRUSHED MEDS AND PLACED IN APPLESAUSE. TURNED PATIENT AT 4AM AND SHE HAD A RUN OF TACHY HR WENT BACK TO 60-70 AFTER THE TURN. NO COMPLAINTS DURING THAT EPISODE. INCONT OF BOWEL BUT NO BM THIS SHIFT. THIN LIQUIDS GIVEN. CONT PLAN OF CARE.. RIGHT FA SL FLUSHES WELL. REMAINS CONFUSED.
--- NOTE | 2020-03-14 04:40 | NUR ---
PATIENT HAD GENERALIZED PAIN AND BACK PAIN.HAD A HYDROCODONE AT 2052
[2020-03-14 05:50] LABS: HEMATOCRIT 22.6 % (37.0-47.0); HEMOGLOBIN 7.6 gm/dL (12.0-15.0); MCHC 33.4 g/dL (28.0-37.0); MCV 98.7 fL (80.0-100.0); RBC 2.29 mil/uL (4.20-5.00); RDW 19.7 % (10.5-14.5); WBC 11.6 thou/uL (4.0-11.0)
--- NOTE | 2020-03-14 06:38 | NUR ---
PAIN MEDICATION GIVEN. REFUSED TO TURN.
[2020-03-14 07:30] VITALS: BP 139/44
[2020-03-14 12:00] VITALS: BP 134/45
[2020-03-14 16:30] VITALS: BP 122/45
--- NOTE | 2020-03-14 16:43 | NUR ---
ASSUMED CARE APPROX 0700. PT ALERT AND ORIENTED TO SELF AND TIME. ASSESSMENTS CHARTED AND VITAL SIGNS STABLE. PT SOMETIMES CONFUSED W/ HALLUCINATIONS. DTR REPORTS THAT THIS HAS INCREASED IN THE PAST COUPLE OF WKS. DTR UPDATED ON PT'S STATUS. PT HAS BEEN SR ON THE TELE MONITOR. PT DENIES ACUTE PAIN. PT ON ROOM AIR WITH NO SIGNS OF RESPIRATORY DISTRESS NOTED.
[2020-03-14 19:52] VITALS: BP 142/66
[2020-03-15 04:29] VITALS: BP 147/77
[2020-03-15 04:45] LABS: HEMATOCRIT 24.4 % (37.0-47.0); HEMOGLOBIN 7.9 gm/dL (12.0-15.0); MCH 32.7 pg (26.0-34.0); MCHC 32.6 g/dL (28.0-37.0); MCV 100.3 fL (80.0-100.0); RBC 2.43 mil/uL (4.20-5.00); RDW 20.2 % (10.5-14.5); WBC 11.8 thou/uL (4.0-11.0)
--- NOTE | 2020-03-15 05:22 | NUR ---
SLEPT MOST OF SHIFT. ASSISTED TO TURN FOR COMFORT AND SKIN CARE. WORKING ON GOALS AND PLAN OF CARE FOR NOC. PROGRESSING SLOWLY TOWARDS DISCHARGE GOALS TO SNIF. DENIES COMPLAINTS OF PAIN AT THIS TIME. CONTINUE TO ASSES CLOSELY.
[2020-03-15 07:20] VITALS: BP 164/70
[2020-03-15] MEDS ORDERED: ARICEPT10 M1 PO (09:33)
[2020-03-15 10:50] VITALS: BP 148/51
--- NOTE | 2020-03-15 13:17 | NUR ---
FAXED CLINICAL UPDATE TO [facility] SPOKE WITH SHIRA IN ADM THEY REVIEWED UPDATE AND WILL NOT BE ABLE TO ACCEPT PT DUE TO HIGH MED COSTS.
--- NOTE | 2020-03-15 14:33 | NUR ---
[facility] is not accepting of patient due to cost of medications. Emailed Dtr [employer] list. She was interested in [facility]. [facility] is not accepting patients who need community dialysis. They also charge for transport to/from dialysis, Inquired into [facility] for dtr [facility] reports is at capacity with dialysis and commercial insurance plans. Updated dtr. referral to [facility].
--- NOTE | 2020-03-15 15:17 | NUR ---
[facility]PO[facility] WITH PREMA IN ADM SHE RECEIVED REFERRAL AND WILL REVIEW IF SHE CAN ACCEPT SHE WILL SUBMIT FOR AUTH. FAXED REFERRAL TO [facility] RECEIVED CONFIRMATION AND LEFT MSG WITH NILAM IN ADM. DP TO FOLLOW.
--- NOTE | 2020-03-15 16:29 | NUR ---
5N CONSULT RECEIVED FOR THIS Pt. Pt SEEN BY REHAB PHYSICIAN DR. CANTU. UNSURE AT THIS TIME IF Pt HAS A DIAGNOSIS FOR ACUTE REHAB. ACUTE REHAB UNIT IS ALSO CURRENTLY AT CAPACITY. WILL CONTINUE TO FOLLOW THIS Pt. THANK YOU FOR THIS CONSULT.
--- NOTE | 2020-03-15 16:45 | NUR ---
[facility] RECEIVED CONFIRMATION AND LEFT MSG WITH CHAUNCEY IN ADM. DP TO FOLLOW.
--- NOTE | 2020-03-15 16:48 | NUR ---
Patient accepted to [facility] they are submitting for auth updated dtr.
--- NOTE | 2020-03-15 16:58 | NUR ---
ASSUMMED PT CARE AT APPROXIMATELY 0700. PT AWAKE AND ORIENTED TO SELF. PT DROWSY THROUGHOUT THE DAY. ASSESSMENT CHARTED. FALL PRECAUTIONS IN PLACE. PT DENIES HAVING CHEST PAIN. PT DENIES HAVING SOB. PT DENIES HAVING ACUTE PAIN. EDUCATED PT'S FAMILY ABOUT POC. PT'S FAMILY STATED UNDERSTANDING AND DENIED HAVING FURTHER QUESTIONS. SPOKE C SOCIAL WORK REGAURDING DISCHARGE. PT'S INSURANCE NOT COVERING FORVM OR [facility] [employer] [facility]. SOCIAL WORK CONTINUING TO FIND SNF FOR PT TO GO TO. PT COMFORTABLE IN BED. PT DENIES HAVING FURTHER CONCERNS. ENCOURGING PT TO EAT AND DRINK FLUIDS. VITAL SIGNS STABLE. BLOOD SUGARS STABLE.
[2020-03-15 17:00] VITALS: BP 155/59
[2020-03-15 19:57] VITALS: BP 153/63
[2020-03-16] VITALS (8 sets, daily range): BP systolic 112–213; BP diastolic 36–81
--- NOTE | 2020-03-16 00:32 | NUR ---
PT C/O DIFFICULTY IN BREATHING,PT ON ASSESSMENT NOTED O2 SAT OF 82%ON RA,O2 AT 2LITERS,APPLIED,BLOOD PRESSURE SYSTOLIC ELEVATED >200,HR IN 120S SINUS TACHY ON MONITOR,HAAZ532.8.BLOOD GLUCOSE CHECKED 148.PT RESPONSIVE,LETHARGIC AND RESPONDS TO SIMPLE COMMANDS.RAPID RESPONSE INTIATED.AGRONOMY RESEARCH MANAGER LIANET NOTIFIED N/OS GIVEN,SEE MAR.WILL CONT TO MONITOR PER POC.
--- NOTE | 2020-03-16 12:41 | NUR ---
PT DISCHARGING TODAY TO [facility] FAXED DC ORDERS/SUMMARY TO FACILITY SPOKE WITH PREMA IN ADM SHE RECEIVED ORDERS AND ARRANGED TRANSPORT BY [facility] FOR 1330. NOTIFIED PT'S DTR (ADDY) OF DC AND TIME OF TRANSPORT. UNIT NOTIFIED AND CHART COPY PER US RN TO CALL REPORT TO [phone].
--- NOTE | 2020-03-16 13:51 | NUR ---
PT CARE ASSUMED APPROX 0700. ASSESSMENTS CHARTED. PT DENIES PAIN AND SOA. VSS. PT DIALYZED UNEVENTFULLY THIS AM. DISCHARGING AT THIS TIME. REPORT CALLED TO JESSICA AT SNF. JESSICA DENIED QUESTIONS OR CONCERNS REGARDING PT'S POC AND TRANSFER. IV OUT, TELE BOX OFF. ESCORTING PT OUT AT THIS TIME.
--- NOTE | 2020-03-17 08:29 | HC ---
[facility] [place] [address] CONSULTATION Name: MARYAM FRENCH Room #: 204-P [facility] IN M.R.#: [id number] Admission: 03/11/20 Attend Phys: Morales Cordova, Discharge: 03/16/20 Date of : 32 Report #: [id number] THIS REPORT FOR: cc: Popeye Walker MD, Thomas P. MD Al-Absi, Ahmed I. MD ~ CC: Jason Walker DATE OF SERVICE: 03/12/2020 REASON FOR CONSULTATION: End-stage renal disease. REASON FOR PRESENTATION: Post fall. HISTORY OF PRESENT ILLNESS: This is obtained from the medical chart. The patient is currently confused. She has dementia and is not able to provide me with the history. She is an 89-year-old who was brought to the hospital after EMS was called as she sustained a fall out of the bed while trying to go to the dialysis. No further details are available. Daughter related to the EMS that the patient has been confused lately. She was found to be hyperkalemic yesterday. 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 Abdomen and pelvis CT showed that there is an irregular shift, ovoid soft tissue density and irregular shaped ovoid soft density tissue within the lower abdomen and pelvis anterior to the urinary bladder. This was consistent with a large hematoma. The patient was admitted for further evaluation and management. Hemoglobin had remained in the 7-9 range. I was consulted to manage her end-stage renal disease. PAST MEDICAL HISTORY: 1. End-stage renal disease, maintained on hemodialysis every Sunday, and Sunday. 2. Remote history of diabetes mellitus. 3. Post-hysterectomy. 4. Left-sided AV fistula. 5. Legal blindness. ALLERGIES: None. MEDICATIONS: 1. Tramadol. 2. Plavix. 3. Metoprolol. 4. Sevelamer. 5. Sensipar. [facility] [address] [place] [address] CONSULTATION Name: MARYAM FRENCH Room #: 204-P [facility] IN [facility].#: [id number] Admission: 03/11/20 Attend Phys: Morales Cordova, Discharge: 03/16/20 Date of : 32 Report #: [id number] 6. Citalopram. SOCIAL HISTORY: No drug or alcohol abuse. REVIEW OF SYSTEMS: Completely unobtainable given the patient's current confusion, advanced dementia, mental status changes. PAST SURGICAL HISTORY: Dialysis fistula. PHYSICAL EXAMINATION: GENERAL: She is confused. VITAL SIGNS: Blood pressure currently is 136/44, temperature is 37. HEAD AND NECK: No jugular venous distention. CHEST: Decreased air entry bilaterally. CARDIOVASCULAR: Regular with no rub detected. ABDOMEN: Soft, tenderness in the lower abdominal area. LOWER EXTREMITIES: No edema. LABORATORY DATA: Hemoglobin is 9.2. Sodium is 135, potassium is 4. Chest x-ray is with no acute finding. CT of the abdomen and pelvis with the above-mentioned finding of a hematoma. ASSESSMENT AND PLAN: 1. End-stage renal disease. 2. Status post fall with hematoma. 3. Continue with the dialysis every Sunday, and Sunday. 4. Follow hemoglobin. 5. Watch blood pressure. 6. Gentle ultrafiltration with dialysis. 7. Surgical team following regarding her abdominal hematoma. <ELECTRONICALLY SIGNED> By: Reed Atkinson MD 03/17/20 0829 0657 8 Reed Atkinson MD /nt
== END 2020-03-16 14:01 | DRG 393 ==
LOC: ER 08:16 → 2N 14:05 → EROBS 14:05 → ICU 14:05 → 2N 03-12 13:37
PROVIDERS: Emergency Medicine; Hospitalist; Internal Medicine Nephrology; Surgery; ADMIT Hospitalist
PROC: 30233N1 Transfusion of Nonautologous Red Blood Cells into Peripheral Vein, Percutaneous Approach (ICD-10-PCS; principal; 2020-03-11)
PROC: 5A1D70Z Performance of Urinary Filtration, Intermittent, Less than 6 Hours Per Day (ICD-10-PCS; principal; 2020-03-11)
DX: S36.92XA Contusion of unspecified intra-abdominal organ, initial encounter (principal); N18.6 End stage renal disease; D62 Acute posthemorrhagic anemia; S30.1XXA Contusion of abdominal wall, initial encounter; Z96.651 Presence of right artificial knee joint; D53.9 Nutritional anemia, unspecified; H54.7 Unspecified visual loss; F03.90 Unspecified dementia, unspecified severity, without behavioral disturbance, psychotic disturbance, mood disturbance, and anxiety; I12.9 Hypertensive chronic kidney disease with stage 1 through stage 4 chronic kidney disease, or unspecified chronic kidney disease; W18.39XA Other fall on same level, initial encounter; R41.0 Disorientation, unspecified; E11.9 Type 2 diabetes mellitus without complications; E87.5 Hyperkalemia; Z90.710 Acquired absence of both cervix and uterus; Z79.82 Long term (current) use of aspirin; Z99.2 Dependence on renal dialysis; Z79.899 Other long term (current) drug therapy; Y93.89 Activity, other specified; Y92.89 Other specified places as the place of occurrence of the external cause; Y99.8 Other external cause status
CPT/HCPCS: 10078; 10081; 32100

== ENCOUNTER 2020-04-03 16:35 | Emergency (ER) | payer OTHER ==
[~2020-04-03] VITALS: Ht 157.5 cm; Wt 45.4 kg
[~2020-04-03 16:35] MED LIST changes: +ARICEPT10 M1 PO; +ASA81BEC PO; +MIRALAX17 G1 PO; +NEPHRO-VITE RX1 TA1 PO; +ROCALTROL0.5 MCG PO
[2020-04-03 17:25] LABS: ABSOLUTE NEUTROPHILS 8.5 thou/uL (1.4-8.2); BASOPHILS 0.6 % (0.0-2.0); EOSINOPHILS 0.7 % (0.0-3.0); HEMATOCRIT 29.1 % (37.0-47.0); HEMOGLOBIN 9.6 gm/dL (12.0-15.0); MCH 30.9 pg (26.0-34.0); MCV 93.7 fL (80.0-100.0); MONOCYTES 10.5 % (1.0-8.0); PLATELET COUNT 279 thou/uL (150-400); POLYS 78.2 % (36.0-66.0); RBC 3.11 mil/uL (4.20-5.00); RDW 20.4 % (10.5-14.5); WBC 10.8 thou/uL (4.0-11.0)
[2020-04-03 17:32] LABS: CALCIUM 8.9 mg/dL (8.5-10.1); CREATININE 3.1 mg/dL (0.6-1.0); POTASSIUM 3.4 mmol/L (3.5-5.1)
[2020-04-03 17:41] LABS: TROPONIN-I 0.11 ng/mL (<0.06)
[2020-04-03 17:53] LABS: ANISOCYTOSIS 2+; OVALOCYTES FEW; TARGET CELLS FEW
[2020-04-03 19:02] VITALS: BP 143/51
--- NOTE | 2020-04-04 11:02 | EKG ---
[facility] [place] [address] ELECTROCARDIOGRAM REPORT Name: MARYAM FRENCH Room #: DEP [facility]#: [id number] Admission: 04/03/20 Attend Phys: Discharge: 04/03/20 Date of : 32 Report #: [id number] THIS REPORT FOR: cc: Popeye Walker MD, Thomas P. MD Couchonnal, Luis F. 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 : 1930 Requested By: Swapnil Gaines Order Number: [id number] MD: [place] Lin Measurements Intervals [place] Rate: 96 P: 0 AK: 150 QRS: -17 QRSD: 64 T: 15 QT: 397 QTc: 502 Interpretive Statements Sinus rhythm Atrial premature complex Borderline low voltage, extremity leads Consider left ventricular hypertrophy Compared to ECG 03/11/2020 09:24:42 Electronically Signed On 04-04-2020 11:01:23 CDT by [place] Lin [email or web address] <ELECTRONICALLY SIGNED> By: [place] Lin MD 04/04/20 1101 16 16 [place] Lin MD /EPI
== END 2020-04-03 19:28 | disposition home or self-care (01) ==
LOC: ER 16:35
PROVIDERS: Emergency Medicine
DX: I12.0 Hypertensive chronic kidney disease with stage 5 chronic kidney disease or end stage renal disease (principal); N18.6 End stage renal disease; R53.1 Weakness; H54.40 Blindness, one eye, unspecified eye; Z99.2 Dependence on renal dialysis; Z90.710 Acquired absence of both cervix and uterus